=== PATIENT | male | born 1990 ===

== ENCOUNTER 2021-05-06 07:38 | Emergency (ER) | payer SELFPAY ==
[~2021-05-06] VITALS: Ht 170.2 cm; Wt 93.5 kg
--- NOTE | 2021-05-06 11:11 | NUR ---
ball worker note: Pt to room from lobby.
[2021-05-06 11:17] VITALS: BP 128/86
== END 2021-05-06 13:50 | disposition home or self-care (01) ==
LOC: ED 13:44
DX: U07.1 COVID-19 (principal); J40 Bronchitis, not specified as acute or chronic
CPT/HCPCS: 71045; 99284; U0003; U0005